=== PATIENT | male | born 1940 | race Asian ===

== ENCOUNTER 2017-01-28 09:03 | Outpatient (CLI) | payer MEDICARE ==
[2017-01-28 10:36] LABS: #Basophils 0.1 thou/uL (0.0-0.2); #Eosinphils 0.2 thou/uL (0.0-0.7); #Lymphocytes 1.7 thou/uL (1.20-3.40); #Monocytes 0.6 thou/uL (0.11-0.59); #Neutrophils 3.7 thou/uL (1.40-6.50); %Basophils 0.8 % (0.0-1.0); %Eosinophils 2.6 % (0.0-10.0); %Lymphocytes 27.6 % (21.0-51.0); %Monocytes 9.9 % (0.0-10.0); Hematocrit 46.9 % (42.0-52.0); Mean Platelet Volume 7.7 fL (7.4-10.4); Red Blood Cell (RBC) Count 5.37 mill/uL (4.70-6.10); White Blood Cell (WBC) Count 6.2 thou/uL (4.8-10.8)
[2017-01-28 10:50] LABS: Anion Gap 12 mmol/L (10-20); BUN (Urea Nitrogen) 11 mg/dL (8.4-25.7); Calc. Creatinine Clearance 0 mL/min (70-130); Calcium 10.1 mg/dL (7.8-10.44); Carbon Dioxide 28 mmol/L (23-31); Chloride 101 mmol/L (98-107); Estimated GFR-MDRD 65
--- NOTE | 2017-01-28 12:24 | RAD ---
CHEST TWO VIEWS: History: Pre op. Comparison: 05-17-09 FINDINGS: Cardiac silhouette and pulmonary vasculature are unremarkable. Mediastinum is midline with post-opera tive changes and aortic calcification. There is no confluent airspace consolidation, pneumothorax, or pleural fluid evident. IMPRESSION: 1. Atherosclerosis. No acute osseous abnormalities are demonstrated. POS: [facility]
--- NOTE | 2017-01-28 16:42 | EKG ---
Test Reason : Blood Pressure : / mmHG Vent. Rate : 074 BPM Atrial Rate : 074 BPM P-R Int : 178 ms QRS Dur : 090 ms QT Int : 382 ms P-R-T Axes : 062 066 054 degrees QTc Int : 424 ms Normal sinus rhythm Right atrial enlargement Abnormal ECG Confirmed by FLY VAIL ([id number]) on 01/28/2017 4:42:16 PM Referred By: ALTAGRACIA Confirmed By:FLY VAIL
== END 2017-01-28 09:04 | disposition home or self-care (01) ==
LOC: LABBT 09:03
PROVIDERS: ATTEND Specialist
DX: Z01.818 Encounter for other preprocedural examination (principal); K40.90 Unilateral inguinal hernia, without obstruction or gangrene, not specified as recurrent; I70.90 Unspecified atherosclerosis
CPT/HCPCS: 71020; 80048; 85025; 93005; 93010

== ENCOUNTER → 2017-01-31 | Day surgery (SDC) | payer MEDICARE ==
--- NOTE | 2017-01-28 08:38 | HP ---
: 1940 HISTORY OF PRESENT ILLNESS: Renard Jenkins is a 76-year-old patient followed Dr. Harry Cha and followed b earnestine Streeter, [facility], has had for the past several days a right inguinal hernia th at is bothersome to him. This is large. It is reducible, but it is increasing and bothersome. On exam today he was appreciated to have a smaller asymptomatic left inguinal hernia. Recommendation would be to repair his symptomatic right inguinal hernia and observe the left inguinal hernia as doi ng both at his age and condition would probably be too much for him. The patient has had a coronary bypass grafting in the past for angina. He denies having had a myocardial infarction. He has not se en his [facility] in over a year, but has an appointment to see him in February. Today in the offic e we called his r[facility] and they were kind enough and had space available to see him later this morning. Once the patient is cleared by Cardiology would plan right inguinal hernia repair with mesh . Risk of infection, bleeding, reoperation explained and he consents. PAST SURGICAL HISTORY: In 2009, coronary bypass grafting, 06/2015 revision of the chest keloid scar from his sternotomy. MEDICATIONS: Aspirin 81 mg a day, p.r.n., Tylenol #3, Alfuzosin ER 10 mg extended release tablet onc e a day, Nasacort daily, trazodone 50 mg at bedtime, allopurinol 1 tablet orally twice a day, melato jean-pierre daily, metoprolol 25 mg with food once a day. PAST MEDICAL HISTORY: Hypertension, headache, coronary disease, coronary bypass grafting in 05/2009, obstructive sleep apnea. He does not wear the CPAP due to its discomfort, elevated cholesterol, de pression. SOCIAL: The patient is retired. He is accompanied by his who is present during the interview a nd discussion. TOBACCO: None. ALCOHOL: None. ALLERGIES: None. PHYSICAL EXAMINATION: VITAL SIGNS: Weight 132 pounds, 67 inches, 125/33, 81, 98.6 degrees. HEENT: Unremarkable. LUNGS: Clear to auscultation. CARDIAC: Regular rate and rhythm without murmur or gallop. ABDOMEN: Soft, nontender. EXTREMITIES: Unremarkable. LYMPH: No lymphadenopathy, neck, groins, axilla. The patient walks slowly. He seems slightly confused at times and his is present to help with t he discussion. Testicles are normal. He has bilateral inguinal hernias, left much smaller only appr eciated during Valsalva, which is weak on his part. Right inguinal hernia present on standing, enlar ges on Valsalva. ASSESSMENT AND PLAN: 1. Symptomatic right inguinal hernia, asymptomatic left inguinal hernia. Plan to observe the left i nguinal hernia for now. Would recommend mesh repair of the symptomatic right inguinal hernia as an o utpatient after cardiac clearance. Risks and benefits explained and discussed, these include infecti on, bleeding, reoperation, recurrence of the hernia, chronic pain. Questions answered. 2. Nocturia, urinary difficulty. Will check urinalysis. He is at risk for having to go home with a Segovia catheter. 3. Coronary artery disease, await cardiac clearance. He sees Dr[facility] Adam Stre[facility]. 4. Depression. 5. Possible benign prostatic hypertrophy. 6. Sleep apnea, noncompliant with CPAP use.
[2017-01-28 09:28] VITALS: BMI 20.8
[~2017-01-31] MED LIST: Bupivacaine/Epinephrine 0.25% 30 ML VIAL ONE; CEFAZOLIN/Water 2 GM/20 ML SYRINGE ONE; Fentanyl 100 MCG/2 ML VIAL ONE; Ketorolac Tromethamine 30 MG/ML VIAL ONE; Lidocaine 2% PF 5 ML VIAL ONE
--- NOTE | 2017-01-31 10:40 | OP ---
DATE OF PROCEDURE: 01/31/2017 PREOPERATIVE DIAGNOSIS: Right inguinal hernia. POSTOPERATIVE DIAGNOSIS: Indirect right inguinal hernia. PROCEDURE: PHS mesh repair of an indirect right inguinal hernia. SURGEON: Dr. Matty Hanson. ANESTHESIA: General. Local 0.25% Marcaine with epinephrine, 30 mL, mixed with 10 mL of 2% Xylocaine , total volume mixture used. ESTIMATED BLOOD LOSS: Less than 10 mL. BLOOD TRANSFUSED: None. COMPLICATIONS: None. PROCEDURE IN DETAIL: The patient was taken to the operating room where under general anesthesia, abd omen was clipped of hair, prepared with ChloraPrep, draped in routine fashion. Local anesthetic infi ltrated into skin and subcutaneous tissue about the operative site. Incision made in the right groin and carried down through the skin and subcutaneous tissue. External oblique incised in the directio n of its fibers to the external ring and cord structures dissected free and surrounded with a [place] drain. Cremasteric fibers taken down, with cautery good hemostasis ensured. Hernia sac identified, dissected free, opened under direct visualization, highly ligated with 0 Nurolon suture and to the s tump of the hernia sac, underlay portion of the PHS mesh secured with 0 Nurolon and underlay portion placed in the preperitoneal space, onlay portion in the floor of canal placing the extended portion s uperiorly in the inguinal canal. Mesh incised laterally creating a sympathetic internal ring, incisi ng it to the cylindrical connecting ring, reapproximating the mesh laterally to Poupart's ligament wi th interrupted suture of 0 Nurolon. Mesh secured to Lazarus's ligament with 0 Nurolon suture. Good h emostasis ensured. Good hernia repair noted. External oblique closed with continuous suture of 3-0 Monocryl, Camper's fascia with continuous suture of 3-0 Monocryl, skin with continuous subcuticular s uture of 4-0 Monocryl. Local anesthetic infiltrated into the space of the inguinal canal and space a kristel and below Camper's fascia and the subcutaneous tissue for postoperative pain control. DermaGlue was applied. The patient tolerated the procedure well.
== END ==
LOC: SDC 08:00
PROVIDERS: ATTEND Specialist
PROC: 0YU50JZ Supplement Right Inguinal Region with Synthetic Substitute, Open Approach (ICD-10-PCS; principal; 2017-01-31)
DX: K40.90 Unilateral inguinal hernia, without obstruction or gangrene, not specified as recurrent (principal); I10 Essential (primary) hypertension; I25.10 Atherosclerotic heart disease of native coronary artery without angina pectoris; G47.33 Obstructive sleep apnea (adult) (pediatric); F32.9 Major depressive disorder, single episode, unspecified; Z91.19 Patient's noncompliance with other medical treatment and regimen; Z79.82 Long term (current) use of aspirin; Z79.899 Other long term (current) drug therapy; Z88.5 Allergy status to narcotic agent; Z98.49 Cataract extraction status, unspecified eye; Z96.1 Presence of intraocular lens; Z95.1 Presence of aortocoronary bypass graft; Z98.890 Other specified postprocedural states
CPT/HCPCS: 49505; C1781; J0131; J1885; J2001; J3010

== ENCOUNTER 2017-10-08 07:51 | Outpatient (CLI) | payer MEDICARE ==
[2017-10-08] MEDS ORDERED: Gadobenate Dimeglumine 529 MG/1 ML (20ML VIAL) ONE (09:00)
--- NOTE | 2017-10-08 09:57 | MRI ---
MRI BRAIN WITH AND WITHOUT IV CONTRAST: HISTORY: Headache. COMPARISON: 06/13/15. FINDINGS: Changes of cortical atrophy and chronic small-vessel ischemic disease are again seen. No restricted diffusion is noted. No evidence of infarct, hemorrhage, mass, midline shift, or abnormal extraaxial fluid collections is seen. No abnormal post-contrast enhancement is noted. IMPRESSION: Chronic changes. No evidence of acute intracranial process or mass. POS: [facility]
== END 2017-10-08 07:52 | disposition home or self-care (01) ==
LOC: SCSMRI 07:51
PROVIDERS: ATTEND Psychiatry & Neurology Neurology
DX: G44.221 Chronic tension-type headache, intractable (principal)
CPT/HCPCS: 70553; 82565; A9579

== ENCOUNTER 2018-04-30 07:20 | Day surgery (SDC) | payer MEDICARE ==
[2018-04-29 13:30] VITALS: BMI 20.9
[~2018-04-30 07:20] MED LIST changes: +Activase 2 MG VIAL FS SCH; -Bupivacaine/Epinephrine 0.25% 30 ML VIAL ONE; -CEFAZOLIN/Water 2 GM/20 ML SYRINGE ONE; +EPINEPHrine 0.3 MG in Ophthalmic Irrigation Solution 500 ML FS SCH; -Ketorolac Tromethamine 30 MG/ML VIAL ONE; -Lidocaine 2% PF 5 ML VIAL ONE; +Midazolam HCl 2 mg/2 ml Vial ONE
[2018-04-30] MEDS ORDERED: Phenylephrine 2.5% Ophth Soln 5 ML BOT ONE (08:22)
[2018-04-30] MEDS ORDERED: Cyclopentolate 1% Opth Drop 2 ML BOT ONE (08:22)
[2018-04-30] MEDS ORDERED: Bupivacaine 0.75% 10 ML AMP ONE (10:02)
[2018-04-30] MEDS ORDERED: PROPOFOL 200 MG/20 ML VIAL ONE (10:02)
[2018-04-30] MEDS ORDERED: Triamcinolone 40 MG/ML VIAL ONE (10:02)
[2018-04-30] MEDS ORDERED: Maxitrol 0.1% Opth Oint 3.5 GM TUBE ONE (10:02)
[2018-04-30] MEDS ORDERED: Lidocaine 4% PF 5 ML AMP ONE (10:02)
[2018-04-30] MEDS ORDERED: CEFAZOLIN 1 GM VIAL ONE (10:02)
[2018-04-30] MEDS ORDERED: Lidocaine 1% PF 5 ML VIAL ONE (10:02)
--- NOTE | 2018-04-30 11:19 | OP ---
DATE OF PROCEDURE: 04/30/2018 PREOPERATIVE DIAGNOSIS: Subretinal hemorrhage, right eye. POSTOPERATIVE DIAGNOSIS: Subretinal hemorrhage, right eye. PROCEDURES PERFORMED: Pars plana vitrectomy and subretinal injection of tPA, right eye. ANESTHESIA: Local with monitored anesthesia care. DESCRIPTION OF PROCEDURE: The patient was identified in preoperative holding area. Appropriate informed consent for planned surgical procedure on the right eye had been obtained. The patient was transported to the operative suite, where appropriate cardiopulmonary monitoring established. Local anesthesia obtained using retrobulbar modified Van Lint lid block using 50:50 mixture of 4% lidocaine and 0.75% bupivacaine. The patient was prepped and draped in the usual sterile manner for ophthalmic surgery on the right eye. Lid speculum was placed in the right eye. A 25-gauge trocar was placed through the conjunctivae and sclera superotemporally, inferotemporally, and superonasally. Infusion line was placed inferotemporally. Light pipe and vitreous cutter inserted into the eye. Core vitrectomy was performed. Vitreous hemorrhage was removed from the eye. A 0.2 mL of 2 mg in 10 mL BSS Activase was injected underneath the retina with an additional 0.2 mL of BSS. Following that, a large blister of fluid completely including the subretinal hemorrhage was identified. Prophylactic laser was placed behind the sclerotomy sites. 28% sulfur hexafluoride gas was infused into the eye. Trocars were removed. The eye was noted to retain pressure well. Retrobulbar Kenalog and subconjunctival Ancef were placed. Antibiotic ointment was placed and the eye was patched and shielded. The patient has been advised to position flat on the back x2 hours, then head up and see Dr. Ceron in the morning. Job ID: [id number]
== END 2018-04-30 13:30 | disposition home or self-care (01) ==
LOC: SDC 07:20
PROVIDERS: ATTEND Ophthalmology Retina Specialist
PROC: 08T43ZZ Resection of Right Vitreous, Percutaneous Approach (ICD-10-PCS; principal; 2018-04-30)
DX: H35.61 Retinal hemorrhage, right eye (principal); Z79.82 Long term (current) use of aspirin; Z79.899 Other long term (current) drug therapy; Z88.5 Allergy status to narcotic agent
CPT/HCPCS: 67025; 67036; J2997; J0171; J0690; J2001; J2250; J2704; J3010; J3301; J3490

== ENCOUNTER 2019-03-04 08:48 | Outpatient (CLI) | payer MEDICARE ==
--- NOTE | 2019-03-04 11:20 | ULT ---
ULTRASOUND ABDOMEN COMPLETE: HISTORY: A 78-year-old male with left lower quadrant abdominal pain and left flank pain. FINDINGS: The gallbladder has normal wall thickness and has no evidence of gallstones or sludge. The hepatic e chogenicity is normal. The kidneys have normal echogenicity, and there is no hydronephrosis. There is no splenomegaly. There is no abdominal aortic aneurysm. No free fluid is identified. The inferi or vena cava is visualized. The pancreas is visualized, although ultrasound is relatively insensitiv e for pancreatic pathology compared to CT and MRI. There is no biliary dilation. The common duct ca liber is 3 mm. IMPRESSION: 1. Normal. 2. For left lower quadrant pain, consider CT of abdomen and pelvis (preferably with IV contrast unle ss contraindicated). alecia Velasquez POS: [facility]
== END 2019-03-04 08:49 | disposition home or self-care (01) ==
LOC: SCSULT 08:48
PROVIDERS: ATTEND Family Medicine
DX: R10.32 Left lower quadrant pain (principal)
CPT/HCPCS: 93975

== ENCOUNTER 2020-11-03 08:16 | Outpatient (CLI) | payer MEDICARE | END 2020-11-03 08:17 | disposition home or self-care (01) | LOC: PET 08:16 | PROVIDERS: ATTEND Internal Medicine Hematology & Oncology | DX: C83.33 Diffuse large B-cell lymphoma, intra-abdominal lymph nodes (principal); R59.0 Localized enlarged lymph nodes; C85.98 Non-Hodgkin lymphoma, unspecified, lymph nodes of multiple sites | CPT/HCPCS: 78816; A9552 ==

== ENCOUNTER → 2021-10-23 | Day surgery (SDC) | payer MEDICARE ==
[~2021-10-23] MED LIST changes: +Activase 2 MG VIAL CATH SCH; -Activase 2 MG VIAL FS SCH; +Bupivacaine 0.75% 10 ML VIAL ONE; +CEFAZOLIN 1 GM VIAL ONE; +Cyclopentolate 1% Opth Drop 2 ML BOT ONE; -EPINEPHrine 0.3 MG in Ophthalmic Irrigation Solution 500 ML FS SCH; +EPINEPHrine 0.3 MG in Ophthalmic Irrigation Solution 500 ML IRR SCH; +Famotidine/PF 20 mg/2ml Vial ONE; -Fentanyl 100 MCG/2 ML VIAL ONE; +Lidocaine 1% MPF 2 ML VIAL ONE; +Lidocaine 4% PF 5 ML AMP ONE; +Maxitrol 0.1% Opth Oint 3.5 GM TUBE ONE; +Ondansetron PF 4 MG/2 ML Vial ONE; +PROPOFOL 20 ML ONE; +PROPOFOL 200 MG/20 ML VIAL ONE; +Phenylephrine 2.5% Ophth Soln 5 ML BOT ONE; +Triamcinolone 40 MG/ML VIAL ONE; +ePHEDrine 50 MG/ML VIAL ONE; +fentaNYL Citrate/PF 100 MCG/2 ML SYRINGE ONE
== END | disposition home or self-care (01) ==
LOC: SDC 12:01
PROVIDERS: ATTEND Ophthalmology Retina Specialist
PROC: 08T53ZZ Resection of Left Vitreous, Percutaneous Approach (ICD-10-PCS; principal; 2021-10-23)
DX: H35.62 Retinal hemorrhage, left eye (principal); H33.22 Serous retinal detachment, left eye; Z88.5 Allergy status to narcotic agent; Z98.49 Cataract extraction status, unspecified eye; Z96.1 Presence of intraocular lens; Z20.822 Contact with and (suspected) exposure to COVID-19
CPT/HCPCS: 67036; 87811; J2997; 67025; J0171; J0690; J2250; J2405; J2704; J3301; J3490; S0028

== ENCOUNTER 2021-12-18 10:24 | Day surgery (SDC) | payer MEDICARE ==
[2021-12-17 11:06] VITALS: BMI 19.8
[~2021-12-18 10:24] MED LIST changes: -Activase 2 MG VIAL CATH SCH; -Bupivacaine 0.75% 10 ML VIAL ONE; -CEFAZOLIN 1 GM VIAL ONE; -Cyclopentolate 1% Opth Drop 2 ML BOT ONE; -Famotidine/PF 20 mg/2ml Vial ONE; -Lidocaine 1% MPF 2 ML VIAL ONE; -Lidocaine 4% PF 5 ML AMP ONE; -Maxitrol 0.1% Opth Oint 3.5 GM TUBE ONE; -Midazolam HCl 2 mg/2 ml Vial ONE; -Ondansetron PF 4 MG/2 ML Vial ONE; -PROPOFOL 20 ML ONE; -PROPOFOL 200 MG/20 ML VIAL ONE; -Phenylephrine 2.5% Ophth Soln 5 ML BOT ONE; -Triamcinolone 40 MG/ML VIAL ONE; -ePHEDrine 50 MG/ML VIAL ONE; -fentaNYL Citrate/PF 100 MCG/2 ML SYRINGE ONE
[2021-12-18] MEDS ORDERED: Cyclopentolate 1% Opth Drop 2 ML BOT ONE (10:37)
[2021-12-18] MEDS ORDERED: Phenylephrine 2.5% Ophth Soln 5 ML BOT ONE (10:37)
[2021-12-18] MEDS ORDERED: fentaNYL PF 100 MCG/2 ML SYRINGE ONE (12:04)
[2021-12-18] MEDS ORDERED: Triamcinolone 40 MG/ML VIAL ONE (12:11)
[2021-12-18] MEDS ORDERED: Glycopyrrolate 0.2 MG/ML 5 ML SYRINGE ONE (12:11)
[2021-12-18] MEDS ORDERED: Ondansetron PF 4 MG/2 ML Vial ONE (12:11)
[2021-12-18] MEDS ORDERED: PROPOFOL 200 MG/20 ML VIAL ONE (12:11)
[2021-12-18] MEDS ORDERED: Lidocaine 1% PF 5 ML VIAL ONE (12:11)
[2021-12-18] MEDS ORDERED: Lidocaine 2% PF 5 ML VIAL ONE (12:11)
[2021-12-18] MEDS ORDERED: Bupivacaine 0.75% 10 ML VIAL ONE (12:11)
[2021-12-18] MEDS ORDERED: Maxitrol 0.1% Opth Oint 3.5 GM TUBE ONE (12:11)
[2021-12-18] MEDS ORDERED: CEFAZOLIN 1 GM VIAL ONE (12:11)
== END 2021-12-18 14:05 | disposition home or self-care (01) ==
LOC: SDC 10:24
PROVIDERS: ATTEND Ophthalmology Retina Specialist
PROC: 08T53ZZ Resection of Left Vitreous, Percutaneous Approach (ICD-10-PCS; principal; 2021-12-18)
DX: H43.12 Vitreous hemorrhage, left eye (principal); H35.62 Retinal hemorrhage, left eye; Z79.82 Long term (current) use of aspirin; Z79.899 Other long term (current) drug therapy; Z88.5 Allergy status to narcotic agent; Z98.49 Cataract extraction status, unspecified eye; Z96.1 Presence of intraocular lens
CPT/HCPCS: J0171; J0690; J2001; J2405; J2704; J3301; J3490

== ENCOUNTER 2022-02-14 16:46 | Day surgery (SDC) | payer MEDICARE ==
[2022-02-14] MEDS ORDERED: EPINEPHrine 0.3 MG in Ophthalmic Irrigation Solution 500 ML IRR SCH (17:15)
[2022-02-14] MEDS ORDERED: Cyclopentolate 1% Opth Drop 2 ML BOT ONE (17:16)
[2022-02-14] MEDS ORDERED: Phenylephrine 2.5% Ophth Soln 5 ML BOT ONE (17:16)
[2022-02-14] MEDS ORDERED: Phenylephrine 10 MG/ML VIAL ONE (17:56)
[2022-02-14] MEDS ORDERED: Fentanyl 250 MCG/5 ML VIAL ONE (17:56)
[2022-02-14] MEDS ORDERED: Lidocaine 2% 6 ML SYR ONE (18:03)
[2022-02-14] MEDS ORDERED: PROPOFOL 200 MG/20 ML VIAL ONE (18:05)
[2022-02-14] MEDS ORDERED: Triamcinolone 40 MG/ML VIAL ONE (18:05)
[2022-02-14] MEDS ORDERED: Dexamethasone 20 MG/5 ML VIAL ONE (18:05)
[2022-02-14] MEDS ORDERED: Lidocaine 1% PF 5 ML VIAL ONE (18:05)
[2022-02-14] MEDS ORDERED: Bupivacaine 0.75% 10 ML VIAL ONE (18:05)
[2022-02-14] MEDS ORDERED: CEFAZOLIN 1 GM VIAL ONE (18:05)
[2022-02-14] MEDS ORDERED: Succinylcholine Chloride 100 MG/5 ML SYRINGE FS ONE (18:05)
[2022-02-14] MEDS ORDERED: Ondansetron PF 4 MG/2 ML Vial ONE (18:05)
[2022-02-14] MEDS ORDERED: Maxitrol 0.1% Opth Oint 3.5 GM TUBE ONE (18:05)
[2022-02-14] MEDS ORDERED: Promethazine HCl 25 MG/ML VIAL IM PRN (19:33)
[2022-02-14] MEDS ORDERED: Promethazine HCl 25 MG/ML VIAL IVPB PRN (19:33)
[2022-02-14] MEDS ORDERED: Ondansetron HCl/PF 4 MG/2 ML Vial IVP PRN (19:33)
== END 2022-02-14 21:07 | disposition home or self-care (01) ==
LOC: SDC 16:46
PROVIDERS: ATTEND Ophthalmology Retina Specialist
PROC: 08T53ZZ Resection of Left Vitreous, Percutaneous Approach (ICD-10-PCS; principal; 2022-02-14)
DX: H33.022 Retinal detachment with multiple breaks, left eye (principal); Z88.5 Allergy status to narcotic agent; Z95.1 Presence of aortocoronary bypass graft; Z98.49 Cataract extraction status, unspecified eye; Z96.1 Presence of intraocular lens
CPT/HCPCS: 67025; J0171; J0690; J1100; J2370; J2405; J2704; J3010; J3301; J3490

== ENCOUNTER 2022-03-19 06:18 | Day surgery (SDC) | payer MEDICARE ==
[2022-03-18 11:15] VITALS: BMI 19.3
[2022-03-19] MEDS ORDERED: Cyclopentolate 1% Opth Drop 2 ML BOT ONE (06:31)
[2022-03-19] MEDS ORDERED: Phenylephrine 2.5% Ophth Soln 5 ML BOT ONE (06:31)
[2022-03-19] MEDS ORDERED: PROPOFOL 20 ML ONE (06:38)
[2022-03-19] MEDS ORDERED: Midazolam HCl 2 mg/2 ml Vial ONE (06:38)
[2022-03-19] MEDS ORDERED: Fentanyl 100 MCG/2 ML VIAL ONE (06:38)
[2022-03-19] MEDS ORDERED: Famotidine/PF 20 mg/2ml Vial ONE (07:06)
[2022-03-19] MEDS ORDERED: Lidocaine 4% PF 5 ML AMP ONE (07:45)
[2022-03-19] MEDS ORDERED: Maxitrol 0.1% Opth Oint 3.5 GM TUBE ONE (07:45)
[2022-03-19] MEDS ORDERED: Triamcinolone 40 MG/ML VIAL ONE (07:45)
[2022-03-19] MEDS ORDERED: PROPOFOL 200 MG/20 ML VIAL ONE (07:45)
[2022-03-19] MEDS ORDERED: ePHEDrine 50 MG/ML VIAL ONE (07:45)
[2022-03-19] MEDS ORDERED: Lidocaine 1% PF 5 ML VIAL ONE (07:45)
[2022-03-19] MEDS ORDERED: Bupivacaine 0.75% 10 ML VIAL ONE (07:45)
[2022-03-19] MEDS ORDERED: Ondansetron PF 4 MG/2 ML Vial ONE (07:45)
[2022-03-19] MEDS ORDERED: Glycopyrrolate 0.2 MG/ML 5 ML SYRINGE ONE (07:45)
[2022-03-19] MEDS ORDERED: CEFAZOLIN 1 GM VIAL ONE (07:45)
== END 2022-03-19 09:53 | disposition home or self-care (01) ==
LOC: SDC 06:18
PROVIDERS: ATTEND Ophthalmology Retina Specialist
PROC: 08T53ZZ Resection of Left Vitreous, Percutaneous Approach (ICD-10-PCS; principal; 2022-03-19)
PROC: 08QF3ZZ Repair Left Retina, Percutaneous Approach (ICD-10-PCS; 2022-03-19)
DX: H33.022 Retinal detachment with multiple breaks, left eye (principal); Z79.82 Long term (current) use of aspirin; Z79.899 Other long term (current) drug therapy; Z88.5 Allergy status to narcotic agent; Z98.49 Cataract extraction status, unspecified eye; Z96.1 Presence of intraocular lens
CPT/HCPCS: C1814; J0171; J2250; J2704; J3010; S0028

== ENCOUNTER 2022-09-03 09:35 | Day surgery (SDC) | payer MEDICARE ==
[2022-08-30 15:47] VITALS: BMI 19.8
[~2022-09-03 09:35] MED LIST changes: +Famotidine/PF 20 mg/2ml Vial ONE; +Midazolam HCl 2 mg/2 ml Vial ONE; +fentaNYL 50 mcg/mL 1 mL Vial ONE
[2022-09-03] MEDS ORDERED: PHENYLephrine 2.5% Ophth Soln 15 ml Bottle ONE (09:57)
[2022-09-03] MEDS ORDERED: Cyclopentolate 0.5% Opth Drops 15 ML BOT ONE (09:57)
[2022-09-03] MEDS ORDERED: Triamcinolone 40 MG/ML VIAL ONE (11:10)
[2022-09-03] MEDS ORDERED: Lidocaine 1% PF 5 ML VIAL ONE (11:10)
[2022-09-03] MEDS ORDERED: CEFAZOLIN 1 GM VIAL ONE (11:10)
[2022-09-03] MEDS ORDERED: Bupivacaine 0.75% 10 ML VIAL ONE (11:10)
[2022-09-03] MEDS ORDERED: PROPOFOL 200 MG/20 ML VIAL ONE (11:10)
[2022-09-03] MEDS ORDERED: Ondansetron PF 4 MG/2 ML Vial ONE (11:10)
[2022-09-03] MEDS ORDERED: ePHEDrine Sulfate 50 MG/10 ML VIAL ONE (11:10)
[2022-09-03] MEDS ORDERED: Glycopyrrolate 0.2 MG/ML 5 ML SYRINGE ONE (11:10)
[2022-09-03] MEDS ORDERED: Lidocaine 4% PF 5 ML AMP ONE (11:10)
[2022-09-03] MEDS ORDERED: Maxitrol 0.1% Opth Oint 3.5 GM TUBE ONE (11:10)
== END 2022-09-03 13:16 | disposition home or self-care (01) ==
LOC: SDC 09:35
PROVIDERS: ATTEND Ophthalmology Retina Specialist
PROC: 089530Z Drainage of Left Vitreous with Drainage Device, Percutaneous Approach (ICD-10-PCS; principal; 2022-09-03)
PROC: 08U10JZ Supplement of Left Eye with Synthetic Substitute, Open Approach (ICD-10-PCS; 2022-09-03)
DX: H43.392 Other vitreous opacities, left eye (principal)
CPT/HCPCS: 67041; J3010; J0171; J0690; J2250; J2405; J2704; J3301; J3490; S0028

== ENCOUNTER 2022-09-10 10:15 | Day surgery (SDC) | payer MEDICARE ==
[~2022-09-10 10:15] MED LIST changes: -Famotidine/PF 20 mg/2ml Vial ONE; -Midazolam HCl 2 mg/2 ml Vial ONE; -fentaNYL 50 mcg/mL 1 mL Vial ONE
[2022-09-10] MEDS ORDERED: PHENYLephrine 2.5% Ophth Soln 15 ml Bottle ONE (11:14)
[2022-09-10] MEDS ORDERED: Cyclopentolate W/ Phenylephrin 40 DROP/2 ML BOT ONE (11:14)
[2022-09-10] MEDS ORDERED: fentaNYL 50 mcg/mL 1 mL Vial ONE (11:27)
[2022-09-10] MEDS ORDERED: Famotidine/PF 20 mg/2ml Vial ONE (11:27)
[2022-09-10] MEDS ORDERED: Vasopressin 20 UNITS/ML VIAL ONE (11:27)
[2022-09-10] MEDS ORDERED: CEFAZOLIN 1 GM VIAL ONE (12:40)
[2022-09-10] MEDS ORDERED: ePHEDrine Sulfate 50 MG/10 ML VIAL ONE (12:40)
[2022-09-10] MEDS ORDERED: Maxitrol 0.1% Opth Oint 3.5 GM TUBE ONE (12:40)
[2022-09-10] MEDS ORDERED: Lidocaine 1% PF 5 ML VIAL ONE (12:40)
[2022-09-10] MEDS ORDERED: Lidocaine 4% PF 5 ML AMP ONE (12:40)
[2022-09-10] MEDS ORDERED: Ondansetron PF 4 MG/2 ML Vial ONE (12:40)
[2022-09-10] MEDS ORDERED: PROPOFOL 200 MG/20 ML VIAL ONE (12:40)
[2022-09-10] MEDS ORDERED: Bupivacaine 0.75% 10 ML VIAL ONE (12:40)
== END 2022-09-10 15:08 | disposition home or self-care (01) ==
LOC: SDC 10:15
PROVIDERS: ATTEND Ophthalmology Retina Specialist
PROC: 08T53ZZ Resection of Left Vitreous, Percutaneous Approach (ICD-10-PCS; principal; 2022-09-10)
PROC: 08NF3ZZ Release Left Retina, Percutaneous Approach (ICD-10-PCS; 2022-09-10)
DX: H33.42 Traction detachment of retina, left eye (principal); H33.022 Retinal detachment with multiple breaks, left eye
CPT/HCPCS: 67113; C1814; J3010; J0171; J0690; J2405; J2704; J3490; S0028

== ENCOUNTER 2022-10-17 10:58 | Outpatient (CLI) | payer MEDICARE | END 2022-10-17 10:59 | disposition home or self-care (01) | LOC: RAD 10:58 | PROVIDERS: ATTEND Otolaryngology Otolaryngic Allergy | DX: R13.11 Dysphagia, oral phase (principal); R13.12 Dysphagia, oropharyngeal phase; R63.30 Feeding difficulties, unspecified; C15.9 Malignant neoplasm of esophagus, unspecified | CPT/HCPCS: 74230 ==